=== PATIENT | male | born 1955 | race Caucasian/White ===

== ENCOUNTER 2021-05-09 09:25 | Inpatient (IN) ==
[2021-05-09 10:22] LABS: Basophils % 0.5 % (0.0-0.8); Eosinophils # 0.2 10*3/uL (0.0-0.87); Eosinophils % 2.4 % (0.00-10.9); Hematocrit 51.3 VOL% (42.0-52.0); Hemoglobin 16.8 GM/DL (14.0-18.0); Immature Granulocytes % 0.2 %; Immature Granulocytes Absolute 0.02 #; Lymphocytes % 35.4 % (21.2-54.2); Mean Corpuscular HGB Conc 32.7 GM/DL (32-36); Mean Corpuscular Volume 95.5 FL (87-102); Mean Platelet Volume 10.7 FL (9.6-12.0); Monocytes % 6.2 % (1.7-12.7); Neutrophils % 55.3 % (38.7-73.9); Platelet Count 180 T/CUMM (130-400); Red Blood Count 5.37 MC/CUMM (3.8-5.5); Red Cell Distribution Width 12.8 % (9.3-17.3); White Blood Count 8.5 T/CUMM (4-12)
[2021-05-09 10:37] LABS: Calcium 10.6 MG/DL (8.5-10.1); Osmolality,Calculated 278.7 MOS/KG (273-304); Potassium 5.3 MMOL/L (3.5-5.1)
[2021-05-09] MEDS ORDERED: ENOXAPARIN 100 MG/ML SYRINGE SUBCUT STA (11:09)
[2021-05-09] MEDS ORDERED: ONDANSETRON 4 MG/2 ML VIAL IV STA (11:11)
[2021-05-09] MEDS ORDERED: MORPHINE 10 MG/1 ML VIAL IV STA (11:11)
[2021-05-09] MEDS: NITROGLYCERIN 2% OINT 1 INCH/GM PACK TOP SCH ×4 (11:40→23:58)
[2021-05-09] MEDS ORDERED: ONDANSETRON 4 MG/2 ML VIAL IV PRN (11:43)
[2021-05-09] MEDS ORDERED: ZALEPLON 5 MG CAPSULE PO PRN (11:43)
[2021-05-09] MEDS ORDERED: DOCUSATE SODIUM 100 MG CAPSULE PO PRN (11:43)
[2021-05-09] MEDS ORDERED: ALUMINUM/MAGNES/SIMETH MAX STR 30 ML UDCUP PO PRN (11:43)
[2021-05-09] MEDS ORDERED: TIROFIBAN IV ONE (11:45)
[2021-05-09] MEDS ORDERED: diphenhydrAMINE CAP 50 MG CAPSULE PO ONE (11:45)
[2021-05-09] MEDS ORDERED: DIAZEPAM 5 MG TABLET PO ONE (11:45)
[2021-05-09] MEDS ORDERED: MIDAZOLAM 2 MG/2 ML VIAL ONE (12:11)
[2021-05-09] MEDS ORDERED: HYDROmorphone 2 MG/1 ML VIAL ONE (12:11)
[2021-05-09] MEDS ORDERED: LIDOCAINE 1% 20 ML VIAL ONE (12:13)
[2021-05-09] MEDS ORDERED: TIROFIBAN 5,000 MCG/100 ML PREMIX IV ONE (12:17)
[2021-05-09] MEDS ORDERED: TIROFIBAN 5,000 MCG/100 ML PREMIX IV SCH (12:25)
[2021-05-09] MEDS ORDERED: diphenhydrAMINE 50 MG/1 ML VIAL ONE (12:45)
[2021-05-09] MEDS ORDERED: NITROGLYCERIN SL 0.4 MG TABLET SL ONE (12:57)
[2021-05-09] MEDS ORDERED: LABETALOL 20 MG/4 ML SYRINGE IV ONE (12:59)
[2021-05-09] MEDS ORDERED: CLOPIDOGREL 300 MG TABLET ONE (13:02)
[2021-05-09] MEDS: SODIUM CHLORIDE 0.45% 1,000 ML IV SCH ×2 (14:18→19:17)
[2021-05-09] MEDS: METOPROLOL SUCCINATE XL 25 MG TABLET PO SCH (14:26)
[2021-05-09 14:31] LABS: CKMB % 7.8 %
[2021-05-09 14:35] LABS: High Sensitive Troponin I* 5083.4 ng/L (0-78)
[2021-05-09] MEDS ORDERED: ROSUVASTATIN 20 MG TABLET PO SCH (21:00)
[2021-05-10] MEDS: SODIUM CHLORIDE 0.45% 1,000 ML IV SCH ×3 (03:04→12:21)
[2021-05-10] MEDS: NITROGLYCERIN 2% OINT 1 INCH/GM PACK TOP SCH ×2 (05:44→12:21)
[2021-05-10 06:17] LABS: Risk Ratio 4.19; VLDL Cholesterol 16.8 MG/DL
[2021-05-10 06:25] LABS: Basophils % 0.4 % (0.0-0.8); Eosinophils # 0.1 10*3/uL (0.0-0.87); Eosinophils % 1.2 % (0.00-10.9); Hematocrit 44.7 VOL% (42.0-52.0); Immature Granulocytes % 0.2 %; Immature Granulocytes Absolute 0.02 #; Lymphocytes # 2.6 10*3/uL (1.4-4.0); Lymphocytes % 30.2 % (21.2-54.2); Mean Corpuscular HGB Conc 32.4 GM/DL (32-36); Mean Platelet Volume 11.1 FL (9.6-12.0); Platelet Count 160 T/CUMM (130-400); Red Blood Count 4.61 MC/CUMM (3.8-5.5); Red Cell Distribution Width 12.8 % (9.3-17.3); White Blood Count 8.5 T/CUMM (4-12)
[2021-05-10 06:26] LABS: Hemoglobin 14.5 GM/DL (14.0-18.0)
[2021-05-10 06:37] LABS: Calcium 8.7 MG/DL (8.5-10.1); Osmolality,Calculated 276.7 MOS/KG (273-304); Potassium 4.5 MMOL/L (3.5-5.1)
[2021-05-10 06:41] LABS: CKMB % 9.6 %
[2021-05-10 06:44] LABS: High Sensitive Troponin I* 17746.9 ng/L (0-78)
[2021-05-10] MEDS: METOPROLOL SUCCINATE XL 25 MG TABLET PO SCH (08:03)
[2021-05-10] MEDS ORDERED: ASPIRIN EC 81 MG TABLET PO SCH (09:00)
[2021-05-10] MEDS ORDERED: PANTOPRAZOLE 40 MG TABLET PO SCH (09:00)
[2021-05-10] MEDS ORDERED: CLOPIDOGREL 75 MG TABLET PO SCH (09:00)
[2021-05-10 12:43] VITALS: BP 124/68
== END 2021-05-10 14:19 | disposition home or self-care (01) | DRG 247 ==
LOC: N.ED 09:25 → N.EDINP 11:43 → N.TELEN 12:45
PROVIDERS: ADMIT Internal Medicine Cardiovascular Disease; ATTEND Internal Medicine Cardiovascular Disease